=== PATIENT | male | born 1980 | race Caucasian/White ===

== ENCOUNTER 2017-10-07 19:05 | Emergency (ER) | payer OTHER ==
[~2017-10-07] VITALS: Ht 185.4 cm; Wt 138.6 kg
[2017-10-07 19:57] LABS: BASOPHIL (%) 0.6 % (0-1); BASOPHIL COUNT 0.1 K/uL (0-0.1); EOSINOPHIL (%) 0.8 % (0-5); EOSINOPHIL COUNT 0.1 K/uL (0-0.3); HEMATOCRIT 40.9 % (38.0-50.0); HEMOGLOBIN 13.9 G/DL (12.5-16.6); IMMATURE GRANULOCYTE (%) 0.5 % (0.0-0.7); LYMPHOCYTE (%) 22.5 % (15-42); MCH 27.8 PG (29.0-34.0); MCV 81.8 FL (86-99); MONOCYTE (%) 5.6 % (3-12); MONOCYTE COUNT 0.5 K/uL (0-0.8); NEUTROPHIL COUNT 6.1 K/uL (1.8-6.4); PLATELET COUNT 207 K/uL (156-360); RBC DIS.WIDTH-CV 12.8 % (11.8-14.6); WHITE BLOOD COUNT 8.7 K/uL (4.1-10.2)
[2017-10-07 20:09] LABS: ALBUMIN 4.5 g/dL (3.2-4.8); CHLORIDE 102 mEq/L (99-109); POTASSIUM 4.2 mEq/L (3.7-5.4); SODIUM 137 mEq/L (136-147)
[2017-10-07 20:11] LABS: GLUCOSE 134 mg/dL (70-99)
[2017-10-07 20:12] LABS: TOTAL PROTEIN 7.5 g/dL (6.4-8.3)
[2017-10-07 20:13] LABS: TOTAL BILIRUBIN 0.3 mg/dL (0.0-1.0)
[2017-10-07 20:15] LABS: ALKALINE PHOSPHATASE 47 IU/L (3-129); CREATININE 1.1 mg/dL (0.6-1.3); GFR ESTIMATE (CALCULATED) > 59 mL/min/ (58.99-99999)
[2017-10-07 20:16] LABS: UREA NITROGEN (BUN) 20 mg/dL (9-23)
[2017-10-07 20:17] LABS: AST (GOT) 26 IU/L (2-34)
[2017-10-07 20:18] LABS: ALT (GPT) 39 IU/L (3-49); LIPASE 17 U/L (1.0-51.0)
[2017-10-07 20:20] LABS: TROP-I INTERPRETATION NEGATIVE; TROPONIN-I < 0.01 ng/mL (0.0-0.30)
[2017-10-07] MEDS ORDERED: ZOFRAN4 MG PO (22:24)
[2017-10-07 22:46] VITALS: BP 145/97
== END 2017-10-07 22:47 | disposition home or self-care (01) ==
LOC: EME 19:05
PROVIDERS: Emergency Medicine
DX: A08.4 Viral intestinal infection, unspecified (principal); Z87.891 Personal history of nicotine dependence
CPT/HCPCS: 80053; 81003; 83690; 84484; 85025; 87502; 93005; 99281; 99284; J2405; J7030